=== PATIENT | female | born 2000 | race Caucasian/White ===

== ENCOUNTER 2020-12-08 12:19 | Emergency (ER) | payer OTHER ==
[~2020-12-08 12:19] MED LIST: BUSPAR5 MG PO; CARAFATE1 GM PO; CIPRO500 M1 PO; CIPRO500 MG PO; EFFEXOR XR37.5 MG PO; IBUPROFEN800 MG PO; K-DUR20 MEQ PO; MAG-OXIDE 400M400 MG PO; METRONIDAZOLE500 MG PO; MILLIPRED DP5 M1 PO; ONDANSETRON ODT4 MG PO; ONDANSETRON ODT4 MG SL; OXYCODONE-ACET1 EAC1 PO; PENTASA250 MG PO; PERCOCET 5-3251 EACH PO; PRAMOXINE HCL15 GM PR; PREDNISONE 10MG10 MG PO; PREDNISONE 20MG20 MG PO; TUCKS MEDICATE1 EACH TOP; VIBRAMYCIN100 MG PO; ZOFRAN4 MG PO
[2020-12-08 13:38] LABS: BILIRUBIN NEGATIVE (NEGATIVE); BLOOD TRACE-INTACT Ery/uL (NEGATIVE); CLARITY CLEAR (CLEAR); COLOR YELLOW (YELLOW); GLUCOSE (U) NORMAL (NORMAL); LEUKOCYTES TRACE Leu/uL (NEGATIVE); NITRITE NEGATIVE (NEGATIVE); PROTEIN NEGATIVE (NEGATIVE); UROBILINOGEN 0.2 mg/dL (0.2-1.0)
[2020-12-08 13:55] LABS: BASOPHIL 0.5 % (0-2); EOSINOPHIL 3.5 % (0-5); HCT 43.2 % (37.0-47.0); HGB 13.8 g/dl (12.5-16.0); LYMPHOCYTE 25.3 % (15-48); MCH 26.8 pg (25.0-31.0); MCHC 31.9 g/dL (32.0-36.0); MONOCYTE 7.7 % (0-12); MPV 10.1 fL (6.0-9.5); NEUTROPHIL 62.6 % (41-80); NRBC 0; PLT 262 K/uL (150-400); RBC 5.14 M/uL (4.20-5.40); RDW 15.7 % (11.5-14.0)
[2020-12-08 14:20] LABS: ALBUMIN 3.2 g/dL (3.4-5.0); BILIRUBIN - TOTAL 0.3 mg/dL (0.2-1.0); BUN/CREAT RATIO (CALC) 10.4 RATIO; CREATININE 0.67 mg/dL (0.51-0.95); GLOBULIN (CALCULATION) 4.3 g/dL; POTASSIUM 4.2 mmol/L (3.5-5.1); TOTAL PROTEIN 7.5 g/dL (6.4-8.2)
[2020-12-08 14:35] LABS: URINARY WBC RARE
== END 2020-12-08 17:52 | disposition home or self-care (01) ==
LOC: FER 12:19
PROVIDERS: Emergency Medicine
DX: R10.84 Generalized abdominal pain (principal); G89.29 Other chronic pain; R19.7 Diarrhea, unspecified; R11.2 Nausea with vomiting, unspecified; F17.290 Nicotine dependence, other tobacco product, uncomplicated; Z90.49 Acquired absence of other specified parts of digestive tract; Z88.0 Allergy status to penicillin; Z88.2 Allergy status to sulfonamides; Z87.19 Personal history of other diseases of the digestive system
CPT/HCPCS: 36415; 80053; 81001; 82150; 83690; 85025; 99284

== ENCOUNTER 2020-12-14 14:00 | Emergency (ER) | payer OTHER ==
[2020-12-14 16:06] LABS: BASOPHIL 0.4 % (0-2); EOSINOPHIL 2.8 % (0-5); HCT 47.5 % (37.0-47.0); HGB 15.2 g/dl (12.5-16.0); LYMPHOCYTE 26.4 % (15-48); MCH 26.8 pg (25.0-31.0); MCV 83.6 fL (78.0-100.0); MONOCYTE 7.5 % (0-12); MPV 10.4 fL (6.0-9.5); NEUTROPHIL 62.6 % (41-80); NRBC 0; PLT 270 K/uL (150-400); RBC 5.68 M/uL (4.20-5.40); RDW 15.2 % (11.5-14.0); WBC 7.9 K/uL (4.0-10.5)
[2020-12-14 16:12] LABS: BILIRUBIN NEGATIVE (NEGATIVE); BLOOD 3+ Ery/uL (NEGATIVE); CLARITY CLEAR (CLEAR); COLOR YELLOW (YELLOW); GLUCOSE (U) NORMAL (NORMAL); LEUKOCYTES 2+ Leu/uL (NEGATIVE); NITRITE NEGATIVE (NEGATIVE); PROTEIN NEGATIVE (NEGATIVE); SPECIFIC GRAVITY 1.015 (1.001-1.030); UROBILINOGEN 0.2 mg/dL (0.2-1.0)
[2020-12-14 16:27] LABS: ALBUMIN 3.6 g/dL (3.4-5.0); BILIRUBIN - TOTAL 0.2 mg/dL (0.2-1.0); BUN/CREAT RATIO (CALC) 13.4 RATIO; CREATININE 0.67 mg/dL (0.51-0.95); GLOBULIN (CALCULATION) 4.9 g/dL; POTASSIUM 3.4 mmol/L (3.5-5.1); TOTAL PROTEIN 8.5 g/dL (6.4-8.2)
[2020-12-14 16:31] LABS: BACTERIA 2+
== END 2020-12-14 17:30 | disposition home or self-care (01) ==
LOC: FER 14:00
PROVIDERS: Nurse Practitioner Family
DX: K62.5 Hemorrhage of anus and rectum (principal); K62.89 Other specified diseases of anus and rectum; N39.0 Urinary tract infection, site not specified; F17.290 Nicotine dependence, other tobacco product, uncomplicated; Z88.0 Allergy status to penicillin; Z88.2 Allergy status to sulfonamides; Z88.8 Allergy status to other drugs, medicaments and biological substances
CPT/HCPCS: 36415; 80053; 81001; 85025; 87076; 87088; 87186; 99284

== ENCOUNTER 2021-06-04 14:02 | Emergency (ER) | payer OTHER ==
[2021-06-04] MEDS ORDERED: ONDANSETRON ODT4 MG PO (15:35)
== END 2021-06-04 15:53 | disposition home or self-care (01) ==
LOC: FER 14:02
DX: J02.0 Streptococcal pharyngitis (principal); B95.5 Unspecified streptococcus as the cause of diseases classified elsewhere; Z88.0 Allergy status to penicillin; Z88.2 Allergy status to sulfonamides
CPT/HCPCS: 99283

== ENCOUNTER 2021-06-12 05:48 | Emergency (ER) | payer OTHER ==
[2021-06-12 08:24] LABS: BILIRUBIN NEGATIVE (NEGATIVE); BLOOD 1+ Ery/uL (NEGATIVE); CLARITY CLEAR (CLEAR); COLOR YELLOW (YELLOW); GLUCOSE (U) NORMAL (NORMAL); LEUKOCYTES NEGATIVE Leu/uL (NEGATIVE); NITRITE NEGATIVE (NEGATIVE); PROTEIN NEGATIVE (NEGATIVE); SPECIFIC GRAVITY <=1.005 (1.001-1.030); UROBILINOGEN 0.2 mg/dL (0.2-1.0)
[2021-06-12 08:30] LABS: URINARY RBC RARE
[2021-06-12 08:31] LABS: BACTERIA TRACE
[2021-06-12 08:46] LABS: BASOPHIL 0.8 % (0-2); EOSINOPHIL 1.2 % (0-5); HCT 46.4 % (37.0-47.0); HGB 14.6 g/dl (12.5-16.0); LYMPHOCYTE 34.1 % (15-48); MCHC 31.5 g/dL (32.0-36.0); MCV 85.9 fL (78.0-100.0); MONOCYTE 9.7 % (0-12); MPV 9.8 fL (6.0-9.5); NEUTROPHIL 53.9 % (41-80); NRBC 0; PLT 202 K/uL (150-400); RDW 15.1 % (11.5-14.0); WBC 6.5 K/uL (4.0-10.5)
[2021-06-12 09:15] LABS: ALBUMIN 3.4 g/dL (3.4-5.0); BILIRUBIN - TOTAL 0.2 mg/dL (0.2-1.0); BUN/CREAT RATIO (CALC) 29.5 RATIO; CREATININE 0.61 mg/dL (0.51-0.95); GLOBULIN (CALCULATION) 4.3 g/dL; TOTAL PROTEIN 7.7 g/dL (6.4-8.2)
[2021-06-12] MEDS ORDERED: PRILOSEC20 MG PO (09:35)
[2021-06-12] MEDS ORDERED: CITRATE OF MAG296 ML PO (09:35)
== END 2021-06-12 09:45 | disposition home or self-care (01) ==
LOC: FER 05:48
PROVIDERS: Emergency Medicine
DX: K29.70 Gastritis, unspecified, without bleeding (principal); K59.00 Constipation, unspecified; Z88.0 Allergy status to penicillin; Z88.2 Allergy status to sulfonamides
CPT/HCPCS: 36415; 74022; 80053; 81001; 85025

== ENCOUNTER 2021-09-07 06:46 | Emergency (ER) | payer OTHER ==
[~2021-09-07 06:46] MED LIST changes: +CITRATE OF MAG296 ML PO; +PRILOSEC20 MG PO
[2021-09-07 08:05] LABS: BASOPHIL 0.4 % (0-2); EOSINOPHIL 0.8 % (0-5); HCT 44.9 % (37.0-47.0); HGB 14.4 g/dl (12.5-16.0); LYMPHOCYTE 15.2 % (15-48); MCH 27.3 pg (25.0-31.0); MCHC 32.1 g/dL (32.0-36.0); MCV 85.2 fL (78.0-100.0); MONOCYTE 5.9 % (0-12); MPV 11.1 fL (6.0-9.5); NEUTROPHIL 77.5 % (41-80); NRBC 0; PLT 224 K/uL (150-400); RBC 5.27 M/uL (4.20-5.40); RDW 13.9 % (11.5-14.0); WBC 9.7 K/uL (4.0-10.5)
[2021-09-07 08:37] LABS: BILIRUBIN NEGATIVE (NEGATIVE); BLOOD TRACE-INTACT Ery/uL (NEGATIVE); CLARITY CLEAR (CLEAR); COLOR YELLOW (YELLOW); GLUCOSE (U) NORMAL (NORMAL); LEUKOCYTES NEGATIVE Leu/uL (NEGATIVE); NITRITE NEGATIVE (NEGATIVE); PROTEIN NEGATIVE (NEGATIVE); SPECIFIC GRAVITY 1.015 (1.001-1.030); UROBILINOGEN 0.2 mg/dL (0.2-1.0)
[2021-09-07 08:47] LABS: BACTERIA 1+; URINARY RBC RARE; URINARY WBC RARE
[2021-09-07 08:48] LABS: ALBUMIN 3.5 g/dL (3.4-5.0); BILIRUBIN - TOTAL 0.2 mg/dL (0.2-1.0); BUN/CREAT RATIO (CALC) 20.3 RATIO; CREATININE 0.69 mg/dL (0.51-0.95); GLOBULIN (CALCULATION) 4.2 g/dL; POTASSIUM 3.7 mmol/L (3.5-5.1); TOTAL PROTEIN 7.7 g/dL (6.4-8.2)
[2021-09-07] MEDS ORDERED: ONDANSETRON ODT4 MG PO (10:24)
[2021-09-07] MEDS ORDERED: BENTYL10 MG PO (10:24)
== END 2021-09-07 10:42 | disposition home or self-care (01) ==
LOC: FER 06:46
PROVIDERS: Emergency Medicine
DX: R10.30 Lower abdominal pain, unspecified (principal); R11.2 Nausea with vomiting, unspecified; R19.7 Diarrhea, unspecified; F17.290 Nicotine dependence, other tobacco product, uncomplicated; Z88.0 Allergy status to penicillin; Z88.2 Allergy status to sulfonamides
CPT/HCPCS: 36415; 80053; 81001; 83605; 83690; 83735; 84145; 85025; J1170; J2405; J7030; Q9967